=== PATIENT | female | born 1945 | race Two or more races ===

== ENCOUNTER 2019-10-25 08:13 | Outpatient (CLI) | payer OTHER | END 2019-10-25 08:25 | disposition home or self-care (01) | LOC: SONOGRAMA 08:13 | PROVIDERS: ATTEND Pathology Anatomic Pathology & Clinical Pathology | DX: E04.2 Nontoxic multinodular goiter (principal) ==

== ENCOUNTER 2021-05-07 10:04 | Outpatient (CLI) | payer OTHER | END 2021-05-07 10:05 | disposition home or self-care (01) | LOC: SONOGRAMA 10:04 | PROVIDERS: ATTEND Pathology Anatomic Pathology & Clinical Pathology | DX: D34 Benign neoplasm of thyroid gland (principal); E06.3 Autoimmune thyroiditis ==